=== PATIENT | male | born 1990 | race Hispanic/Latino ===

== ENCOUNTER 2017-10-12 19:06 | Inpatient (IN) | payer OTHER, SELFPAY ==
[2017-10-12] MEDS ORDERED: IPRATROPIUM BROM 0.5MG/2.5ML ONE (19:32)
[2017-10-12] MEDS ORDERED: ALBUTEROL 2.5 MG/3 ML NEB SOL ONE ×2 (19:32→20:38)
[2017-10-12] MEDS ORDERED: MAGNESIUM SULFATE 1 gm IVPB 1 GM/100 ML BAG IV ONE (19:38)
[2017-10-12] MEDS ORDERED: METHYLPREDNISOLONE 125 MG INJ ONE (19:38)
[2017-10-12 20:28] LABS: Absolute Lymphocytes (CBC) 2.1 K/uL (0.7-4.9); Absolute Monocytes 0.9 K/uL (0.1-1.3); Absolute Neutrophil 5.3 K/uL (1.8-8.0); Basophils % 0.2 % (0-1.3); Hematocrit 42.9 % (39.6-49.0); Lymphocytes % 24.8 % (15.3-44.8); MCH 29.8 pg (27.0-35.0); MCV 87.7 fL (80-100); MPV 8.6 fL (7.6-11.3); Monocytes % 10.1 % (3.3-12.3); RBC Red Blood Cell Count 4.89 M/uL (4.33-5.43)
[2017-10-12] MEDS ORDERED: AZITHROMYCIN 500 MG/250 ML BAG ONE (21:03)
[2017-10-12] MEDS ORDERED: CEFTRIAXONE/SWI 1gm 1 GM/10 ML SYR ONE (21:03)
[2017-10-12] MEDS ORDERED: POTASSIUM CL SA 10 MEQ TAB PO ONE (21:38)
--- NOTE | 2017-10-12 21:40 | EDPHYS ---
Physician Documentation [facility] Name: Monster Hill Jr Age: 27 yrs Sex: Male : 1990 Arrival Date: 10/12/2017 Time: 19:10 Bed 28 Private MD: ED Physician Robert Galo HPI: 10/12 19:40 This 27 yrs old Male presents to ER via Wheelchair with complaints of kb Breathing Difficulty. 19:40 The patient has shortness of breath at rest. Onset: The symptoms/episode began/occurred kb 2 day(s) ago. Duration: The symptoms are continuous. The patient's shortness of breath is aggravated by nothing, is alleviated by nothing. Associated signs and symptoms: Pertinent positives: non-productive cough, fever. Severity of symptoms: At their worst the symptoms were moderate in the emergency department the symptoms are unchanged. The patient has not experienced similar symptoms in the past. The patient has not recently seen a physician. Pt reports cough and fever since Sunday, shortness of breath started yesterday. TMAX 102. Historical: - Allergies: 19:29 No Known Allergies; aj - Home Meds: 19:29 None [Active]; aj - PMHx: 19:29 None; aj - PSHx: 19:29 None; aj - Immunization history:: Adult Immunizations up to date. - Social history:: Smoking status: Patient/guardian denies using tobacco. - Ebola Screening: : Patient negative for fever greater than or equal to 101.5 degrees Fahrenheit, and additional compatible Ebola Virus Disease symptoms Patient denies exposure to infectious person Patient denies travel to an Ebola-affected area in the 21 days before illness onset No symptoms or risks identified at this time. ROS: 19:39 ENT: Negative for injury, pain, and discharge, Neck: Negative for injury, pain, and kb swelling, Cardiovascular: Negative for chest pain, palpitations, and edema, Abdomen/GI: Negative for abdominal pain, nausea, vomiting, diarrhea, and constipation, Back: Negative for injury and pain, : Negative for injury, bleeding, discharge, and swelling, MS/Extremity: Negative for injury and deformity, Skin: Negative for injury, rash, and discoloration, Neuro: Negative for headache, weakness, numbness, tingling, and seizure. 19:39 Constitutional: Positive for fever, Negative for body aches, chills, fatigue, malaise, poor PO intake, weight loss. 19:39 Respiratory: Positive for cough, shortness of breath, Negative for dyspnea on exertion, hemoptysis, orthopnea, pleurisy, sputum production, wheezing. Exam: 19:39 Constitutional: This is a well developed, well nourished patient who is awake, alert, kb and in no acute distress. Head/Face: Normocephalic, atraumatic. ENT: Nares patent. No nasal discharge, no septal abnormalities noted. Tympanic membranes are normal and external auditory canals are clear. Oropharynx with no redness, swelling, or masses, exudates, or evidence of obstruction, uvula midline. Mucous membranes moist. Neck: Trachea midline, no thyromegaly or masses palpated, and no cervical lymphadenopathy. Supple, full range of motion without nuchal rigidity, or vertebral point tenderness. No Meningismus. Chest/axilla: Normal chest wall appearance and motion. Nontender with no deformity. No lesions are appreciated. Cardiovascular: Regular rate and rhythm with a normal S1 and S2. No gallops, murmurs, or rubs. Normal PMI, no JVD. No pulse deficits. Abdomen/GI: Soft, non-tender, with normal bowel sounds. No distension or tympany. No guarding or rebound. No evidence of tenderness throughout. Back: No spinal tenderness. No costovertebral tenderness. Full range of motion. Skin: Warm, dry with normal turgor. Normal color with no rashes, no lesions, and no evidence of cellulitis. MS/ Extremity: Pulses equal, no cyanosis. Neurovascular intact. Full, normal range of motion. Neuro: Awake and alert, GCS 15, oriented to person, place, time, and situation. Cranial nerves II-XII grossly intact. Motor strength 5/5 in all extremities. Sensory grossly intact. Cerebellar exam normal. Normal gait. 19:39 Respiratory: mild respiratory distress is noted, Respirations: labored breathing, that is moderate, Breath sounds: decreased breath sounds, that are moderate, are located in both bases, wheezing: expiratory that is moderate, is scattered. Vital Signs: 19:29 BP 130 / 81; Pulse 105; Resp 35; Temp 97.3; Pulse Ox 91% on R/A; Weight 107.95 kg; aj Height 5 ft. 11 in. (180.34 cm); 20:35 Pulse 114; Resp 30; Temp 98.9(O); Pulse Ox 95% on Nebulizer Mask; Pain 0/10; mg2 21:39 BP 157 / 81; Pulse 116; Resp 30; Pulse Ox 96% on Nebulizer Mask; Pain 0/10; mg2 22:33 BP 141 / 71; Pulse 118; Resp 28; Pulse Ox 92% on 4 lpm NC; Pain 0/10; mg2 19:29 Body Mass Index 33.19 (107.95 kg, 180.34 cm) aj MDM: 19:25 Patient medically screened. kb 19:39 Data reviewed: vital signs, nurses notes. Data interpreted: Pulse oximetry: on room air kb is 91 %. Interpretation: borderline. 21:38 Counseling: I had a detailed discussion with the patient and/or guardian regarding: the kb historical points, exam findings, and any diagnostic results supporting the discharge/admit diagnosis, lab results, radiology results, the need for further work-up and treatment in the hospital. 21:38 Physician consultation: Jennifer Hartmann MD was contacted at 21:38, regarding admission, kb to the medical/surgical unit. patient's condition, and will see patient in ED, shortly. 10/12 19:29 Order name: CBC with Diff; Complete Time: 21:25 kb 10/12 19:29 Order name: Basic Metabolic Panel; Complete Time: 21:25 kb 10/12 19:29 Order name: Blood Culture Adult (2) kb 10/12 19:29 Order name: D-Dimer; Complete Time: 21:25 kb 10/12 20:55 Order name: Flu; Complete Time: 21:40 kb 10/12 21:37 Order name: Procalcitonin; Complete Time: 07:32 kb 10/12 19:29 Order name: Chest Pa And Lat (2 Views) XRAY; Complete Time: 21:43 kb 10/12 21:15 Order name: CT Chest For PE Angio; Complete Time: 07:32 kb 10/12 21:37 Order name: Lactate; Complete Time: 07:32 kb 10/12 19:29 Order name: IV Start; Complete Time: 19:38 kb Administered Medications: 19:31 Drug: DuoNeb (3:1) (2.5 mg - 0.5 mg) 3 ml Route: Nebulizer; mg2 20:30 Follow up: Response: No adverse reaction; No change in condition mg2 19:36 Drug: Magnesium Sulfate 1 grams Route: IVPB; Infused Over: 1 hrs; Site: left la1 antecubital; 23:12 Follow up: Response: No adverse reaction; IV Status: Completed infusion mg2 19:36 Drug: SOLU-Medrol 125 mg Route: IVP; Site: left antecubital; la1 23:12 Follow up: Response: No adverse reaction; Marked relief of symptoms mg2 20:34 Drug: Albuterol 2.5 mg Route: Inhalation; mg2 21:05 Drug: Zithromax 500 mg Route: IVPB; Infused Over: 1 hrs; Site: left antecubital; mg2 23:11 Follow up: Response: No adverse reaction; IV Status: Completed infusion mg2 21:06 Drug: Albuterol 2.5 mg Route: Inhalation; mg2 21:06 Drug: Rocephin - (cefTRIAXone) 1 grams Route: IVPB; Infused Over: 30 mins; Site: left mg2 antecubital; 23:11 Follow up: Response: No adverse reaction; IV Status: Completed infusion mg2 21:38 Drug: Albuterol 2.5 mg Route: Inhalation; mg2 23:11 Follow up: Response: No adverse reaction; Marked relief of symptoms mg2 21:38 Drug: Potassium Chloride 40 mEq Route: PO; mg2 23:11 Follow up: Response: No adverse reaction mg2 Disposition: 10/12/17 21:38 Hospitalization ordered by Jennifer Hartmann for Inpatient Admission. Preliminary diagnosis is Pneumonia, unspecified organism. - Bed requested for Telemetry/MedSurg (Inpatient). - Status is Inpatient Admission. mg2 - Condition is Stable. - Problem is new. - Symptoms are unchanged. UTI on Admission? No Addendum: 10/14/2017 08:17 Co-signature as Attending Physician, Robert Galo MD I agree with the assessment and w a plan of care. Signatures: Dispatcher [employer] Malu Oconnor FNP-C FNP-Maribeth Grayson RN Linda Reeves RN RN aj Attema, Lee, RN RN la1 Robert Galo MD MD wa Gardose, Michele, RN RN mg2 Corrections: (The following items were deleted from the chart) 10/12 22:39 21:38 Hospitalization Ordered by Jennifer Hartmann MD for Inpatient Admission. Preliminary kl diagnosis is Pneumonia, unspecified organism. Bed requested for Telemetry/MedSurg (Inpatient). Status is Inpatient Admission. Condition is Stable. Problem is new. Symptoms are unchanged. UTI on Admission? No. kb 23:13 22:39 10/12/2017 21:38 Hospitalization Ordered by Jennifer Hartmann MD for Inpatient mg2 Admission. Preliminary diagnosis is Pneumonia, unspecified organism. Bed requested for Telemetry/MedSurg (Inpatient). Status is Inpatient Admission. Condition is Stable. Problem is new. Symptoms are unchanged. UTI on Admission? No. kl
--- NOTE | 2017-10-12 21:40 | ER ---
Nurse's Notes [facility] Name: Monster Hill Jr Age: 27 yrs Sex: Male : 1990 Arrival Date: 10/12/2017 Time: 19:10 Bed 28 Private MD: Diagnosis: Pneumonia, unspecified organism Presentation: 10/12 19:27 Presenting complaint: Patient states: Difficulty breathing with cough since Sunday. aj Patient is tachypneic in triage but able to speak clearly. Transition of care: patient was not received from another setting of care. Onset of symptoms was October 08, 2017. Risk Assessment: Do you want to hurt yourself or someone else? Patient reports no desire to harm self or others. Initial Sepsis Screen: Does the patient meet any 2 criteria? RR > 20 per min. Does the patient have a suspected source of infection? No. Patient's initial sepsis screen is negative. Care prior to arrival: None. 19:27 Method Of Arrival: Wheelchair 19:27 Acuity: REGGIE 2 aj Triage Assessment: 19:29 General: Appears in no apparent distress. comfortable, Behavior is cooperative. Pain: aj Denies pain. Neuro: Level of Consciousness is awake, alert, obeys commands, Oriented to person, place, time, situation, Appropriate for age. Respiratory: Reports shortness of breath at rest cough that is non-productive, persistent Airway is patent Respiratory effort is even, labored, Respiratory pattern is tachypnea Breath sounds are diminished bilaterally. Onset: The symptoms/episode began/occurred gradually, the patient has moderate shortness of breath. Derm: Skin is intact, is healthy with good turgor, Skin is pink, warm \T\ dry. normal. Historical: - Allergies: 19:29 No Known Allergies; aj - Home Meds: 19:29 None [Active]; aj - PMHx: 19:29 None; aj - PSHx: 19:29 None; aj - Immunization history:: Adult Immunizations up to date. - Social history:: Smoking status: Patient/guardian denies using tobacco. - Ebola Screening: : Patient negative for fever greater than or equal to 101.5 degrees Fahrenheit, and additional compatible Ebola Virus Disease symptoms Patient denies exposure to infectious person Patient denies travel to an Ebola-affected area in the 21 days before illness onset No symptoms or risks identified at this time. Screenin:39 Abuse screen: Denies threats or abuse. Nutritional screening: No deficits noted. mg2 Tuberculosis screening: No symptoms or risk factors identified. Fall Risk IV access (20 points). Assessment: 19:38 General: Appears in no apparent distress. comfortable, Behavior is calm, cooperative. mg2 Pain: Denies pain. Neuro: Level of Consciousness is awake, alert, obeys commands, Oriented to person, place, time, situation. Cardiovascular: Capillary refill < 3 seconds Patient's skin is warm and dry. Respiratory: Airway is patent Respiratory effort is even, unlabored, Respiratory pattern is regular, symmetrical, Breath sounds are coarse bilaterally. in left posterior upper lobe, right posterior upper lobe, left posterior lower lobe, right posterior middle lobe and right posterior lower lobe Breath sounds with crackles. GI: No signs and/or symptoms were reported involving the gastrointestinal system. : No signs and/or symptoms were reported regarding the genitourinary system. EENT: No signs and/or symptoms were reported regarding the EENT system. Derm: Skin is intact, Skin is pink, warm \T\ dry. normal. Musculoskeletal: Circulation, motion, and sensation intact. 20:34 Reassessment: Patient and/or family updated on plan of care and expected duration. Pain mg2 level reassessed. 20:42 Reassessment: patient sent to [facility]. mg2 22:33 Reassessment: Patient appears in no apparent distress at this time. Patient and/or mg2 family updated on plan of care and expected duration. Pain level reassessed. Patient is alert, oriented x 3, equal unlabored respirations, skin warm/dry/pink. patient is still tachypneic. 22:49 Cardiovascular: Rhythm is regular. mg2 Vital Signs: 19:29 BP 130 / 81; Pulse 105; Resp 35; Temp 97.3; Pulse Ox 91% on R/A; Weight 107.95 kg; aj Height 5 ft. 11 in. (180.34 cm); 20:35 Pulse 114; Resp 30; Temp 98.9(O); Pulse Ox 95% on Nebulizer Mask; Pain 0/10; mg2 21:39 BP 157 / 81; Pulse 116; Resp 30; Pulse Ox 96% on Nebulizer Mask; Pain 0/10; mg2 22:33 BP 141 / 71; Pulse 118; Resp 28; Pulse Ox 92% on 4 lpm NC; Pain 0/10; mg2 19:29 Body Mass Index 33.19 (107.95 kg, 180.34 cm) ED Course: 19:10 Patient arrived in ED. es 19:24 Malu David [facility]-C [facility] kb 19:25 Robert Galo MD is Attending Physician. kb 19:28 Triage completed. aj 19:29 Arm band placed on left wrist. Patient placed in an exam room. aj 19:30 Salbador Allan, ALEA is Primary Nurse. mg2 19:37 No provider procedures requiring assistance completed. Inserted saline lock: 20 gauge mg2 in left antecubital area, using aseptic technique. Blood collected. 19:39 Patient has correct armband on for positive identification. Bed in low position. Pulse mg2 ox on. NIBP on. Door closed. Warm blanket given. Head of bed. 21:01 Notified Nurse Practitioner and/or Physician Inspector [employer] of a critical lab result(s), d fc dimer of 872. 21:[address] vr 21:24 Chest Pa And Lat (2 Views) XRAY In Process Unspecified. EDMS 21:29 CT completed. Patient tolerated procedure well. Patient moved back from CT. nj 21:30 CT Chest For PE Angio In Process Unspecified. EDMS 21:38 Jennifer Hartmann MD is Hospitalizing Provider. kb 22:01 Pillow given. jp3 22:26 Notified ED physician of a critical lab result(s). lactate of 2.1. fc 22:49 Inserted saline lock: 20 gauge in right antecubital area, using aseptic technique. mg2 Blood collected. 22:49 Patient admitted, IV remains in place. mg2 Administered Medications: 19:31 Drug: DuoNeb (3:1) (2.5 mg - 0.5 mg) 3 ml Route: Nebulizer; mg2 20:30 Follow up: Response: No adverse reaction; No change in condition mg2 19:36 Drug: Magnesium Sulfate 1 grams Route: IVPB; Infused Over: 1 hrs; Site: left la1 antecubital; 23:12 Follow up: Response: No adverse reaction; IV Status: Completed infusion mg2 19:36 Drug: SOLU-Medrol 125 mg Route: IVP; Site: left antecubital; la1 23:12 Follow up: Response: No adverse reaction; Marked relief of symptoms mg2 20:34 Drug: Albuterol 2.5 mg Route: Inhalation; mg2 21:05 Drug: Zithromax 500 mg Route: IVPB; Infused Over: 1 hrs; Site: left antecubital; mg2 23:11 Follow up: Response: No adverse reaction; IV Status: Completed infusion mg2 21:06 Drug: Albuterol 2.5 mg Route: Inhalation; mg2 21:06 Drug: Rocephin - (cefTRIAXone) 1 grams Route: IVPB; Infused Over: 30 mins; Site: left mg2 antecubital; 23:11 Follow up: Response: No adverse reaction; IV Status: Completed infusion mg2 21:38 Drug: Albuterol 2.5 mg Route: Inhalation; mg2 23:11 Follow up: Response: No adverse reaction; Marked relief of symptoms mg2 21:38 Drug: Potassium Chloride 40 mEq Route: PO; mg2 23:11 Follow up: Response: No adverse reaction mg2 Outcome: 21:38 Decision to Hospitalize by Provider. kb 22:50 Admitted to Med/surg accompanied by nurse, via wheelchair, room 204, with oxygen, with mg2 chart, Report called to ALEA Jaffe 22:50 Condition: stable 22:50 Instructed on the need for admit, Demonstrated understanding of instructions. 23:13 Patient left the ED. mg2 Signatures: Dispatcher [employer] Malu Oconnor, NON DESTRUCTIVE EVALUATION TECHNICIAN-C NON DESTRUCTIVE EVALUATION TECHNICIAN-Linda Hebert, RN Lucy Cuevas Felicia, RN RN fc Davis, Victoria vr Attema, Lee, RN RN la1 Jordan, Nathan Salbador Garnica RN RN mg2 Shayne Murguia jp3
--- NOTE | 2017-10-12 21:42 | RAD REPORT ---
EXAM DESCRIPTION: RAD - Chest Pa And Lat (2 Views) - 10/12/2017 8:48 pm CLINICAL HISTORY: Cough, difficulty breathing COMPARISON: November 2016 TECHNIQUE: PA and lateral views of the chest were obtained. FINDINGS: The lungs are underinflated. Interstitial and alveolar opacification present at the left b ase. No vascular engorgement. Trachea is midline. Heart size is normal and central vasculature is w ithin normal limits. No pleural effusion or pneumothorax seen. No acute bony finding noted. No aor tic abnormality. IMPRESSION: Left lung base pneumonia.
--- NOTE | 2017-10-12 21:42 | RAD REPORT ---
EXAM DESCRIPTION: CT - Chest For Pe Angio - 10/12/2017 9:30 pm CLINICAL HISTORY: Chest pain, difficulty breathing COMPARISON: None. TECHNIQUE: Dynamically enhanced 3 mm thick images of the chest were obtained during administration o f approximately 150mL Isovue 370 IV contrast. Coronal and oblique MIP reconstruction images were gene rated and reviewed. Exam utilizes a protocol to evaluate the pulmonary arterial tree. All CT scans are performed using dose optimization technique as appropriate and may include automated exposure control or mA/KV adjustment according to patient size. FINDINGS: Pulmonary arterial tree opacification is not optimal due to technical issues with the exam ination. There is no central pulmonary embolism. Far peripheral branch assessment is limited. Likelih ood of pulmonary embolic disease is felt to be low. The aorta as imaged shows no acute or suspicious finding. No pericardial thickening or effusion. Airspace opacification is present throughout much of the left lower lobe. A few air bronchograms are present. There is minimal alveolar opacification in the lingula of the left upper lobe. No pleural ef fusion or pleural thickening. Right lung field is clear. No mediastinal or hilar suspicious masses. No chest wall masses or abnormal axillary lymphadenopathy. IMPRESSION: Moderate left lower lobe pneumonia with pneumonia in the lingula of the left upper lobe as well. Exam is suboptimal but no pulmonary emboli suspected.
--- NOTE | 2017-10-12 22:42 | P.HP ---
Certification for Inpatient Patient admitted to: Inpatient With expected LOS: >2 Midnights Practitioner: I am a practitioner with admitting privileges, knowledge of patient current condition, hospital course, and medical plan of care. Services: Services provided to patient in accordance with Admission requirements found in Title 42 Section 412.3 of the Code of Federal Regulations Patient History Date of Service: 10/12/17 Reason for admission: pneumonia History of Present Illness: Mr Hill is a 27 years old male with pretty healthy past medical history, who start about 6 days ago with productive cough and progressive SOB. He has had fever, max 102.8F. Gradually, his SOB was getting worse, and today decided to come to ED for evaluation. Lab work remarkable for normal WBC count, but elevated lactate. Procalcitonin is still pending. D-dimer was also elevated, CTA chest was negative for PE, however, it was remarkable for left lower lobe opacification consistent with pneumonia. The patient was afebrile at arrival, O2 sat 91% on RA. Allergies No Known Allergies Allergy (Unverified 11/16/16 20:29) Home medications list reviewed: Yes - Past Medical/Surgical History Past Medical History: Reviewed- Non-Contributory Past Surgical History: Reviewed- Non-Contributory - Family History Family History: Reviewed- Non-Contributory - Social History Smoking Status: Never smoker Alcohol use: Yes CD- Drugs: No Caffeine use: Yes Place of Residence: Home Review of Systems 10-point ROS is otherwise unremarkable Physical Examination - Physical Exam General: Alert, In no apparent distress HEENT: Atraumatic, PERRLA, Mucous membr. moist/pink, EOMI, Sclerae nonicteric Neck: Supple, 2+ carotid pulse no bruit, No LAD, Without JVD or thyroid abnormality Respiratory: Diminished, Crackles/rales (left base crackles) Cardiovascular: Regular rate/rhythm, Normal S1 S2 Gastrointestinal: Normal bowel sounds, No tenderness Musculoskeletal: No tenderness Integumentary: No rashes Neurological: Normal speech, Normal strength at 5/5 x4 extr, Normal tone, Normal affect Lymphatics: No axilla or inguinal lymphadenopathy - Studies Laboratory Data (last 24 hrs) 10/12/17 20:00: Sodium 137, Potassium 3.0 L, BUN 12, Creatinine 1.20, Glucose 113 H 10/12/17 20:00: WBC 8.5, Hgb 14.6, Hct 42.9, Plt Count 245 Microbiology Data (last 24 hrs): 10/12/17 21:05 Nasopharnyx Influenza Type A Antigen Screen - Final 10/12/17 21:05 Nasopharnyx Influenza Type B Antigen Screen - Final Assessment and Plan - Problems (Diagnosis) (1) Acute respiratory failure Current Visit: Yes Status: Acute Qualifiers: Respiratory failure complication: hypoxia Qualified Code(s): J96.01 - Acute respiratory failure with hypoxia (2) Pneumonia Current Visit: Yes Status: Acute Qualifiers: Pneumonia type: due to unspecified organism Laterality: left Lung location: lower lobe of lung Qualified Code(s): J18.1 - Lobar pneumonia, unspecified organism - Plan The patient will be admitted to the hospital due to acute respiratory failure with hypoxemia due to LLL pneumonia. influenza screening negative. Will order empiric treatment with IV Levaquin, oxygen suport and breathing treatments. Blood culures in process. Consult Dr Atkinson. - Advance Directives Does patient have a Living Will: No Does patient have a Durable POA for Healthcare: No - Code Status/Comfort Care Code Status Assessed: Yes Code Status: Full Code
[2017-10-12] MEDS ORDERED: ALBUTEROL 2.5 MG/3 ML NEB SOL NEB PRN (23:10)
[2017-10-12] MEDS ORDERED: ONDANSETRON 4 MG/2 ML VIAL IV PRN (23:10)
[2017-10-12] MEDS ORDERED: ACETAMINOPHEN 500 MG TAB PO PRN (23:10)
[2017-10-12] MEDS ORDERED: IPRATROPIUM BROM 0.5MG/2.5ML NEB PRN (23:10)
[2017-10-12] MEDS: Levofloxacin 750mg IV 750 MG/150 ML BAG IV SCH (23:30)
[2017-10-12] MEDS: NA CHLORIDE 0.9% 1,000 ML IV SCH (23:30)
[2017-10-13 05:44] LABS: Absolute Lymphocytes (CBC) 0.4 K/uL (0.7-4.9); Absolute Monocytes 0.2 K/uL (0.1-1.3); Absolute Neutrophil 5.3 K/uL (1.8-8.0); Hematocrit 38.8 % (39.6-49.0); Lymphocytes % 6.6 % (15.3-44.8); MCH 29.8 pg (27.0-35.0); MCV 86.7 fL (80-100); MPV 8.9 fL (7.6-11.3); Monocytes % 3.1 % (3.3-12.3); RBC Red Blood Cell Count 4.48 M/uL (4.33-5.43)
[2017-10-13 06:00] LABS: Magnesium 2.6 mg/dL (1.8-2.4); Potassium 3.3 mmol/L (3.5-5.1)
[2017-10-13 06:17] LABS: Blood Morphology Comment NOT SEEN (NOT SEEN); Platelet Estimate ADEQ; Toxic Granulation 2+
[2017-10-13] MEDS ORDERED: POTASSIUM 25 MEQ EFFERV TAB PO ONE (07:15)
[2017-10-13 09:01] LABS: Urine Appearance CLEAR; Urine Bilirubin NEGATIVE (NEG); Urine Blood NEGATIVE (NEG); Urine Color YELLOW; Urine Glucose 1+ (NEG); Urine Protein 1+ (NEG); Urine Specific Gravity >=1.030 (1.005-1.030); Urine pH 6.5 (5.0-7.0)
[2017-10-13 09:07] LABS: Urine Microscopic Reflex ORDER UMIC
[2017-10-13 09:44] LABS: Urine Bacteria <20 /HPF (NONE SEEN); Urine Culture Reflex Order NOT NEEDED; Urine RBC <5 /HPF (NONE SEEN)
[2017-10-13 09:45] LABS: Urine Mucus MOD /HPF (NONE SEEN)
[2017-10-13] MEDS: NA CHLORIDE 0.9% 1,000 ML IV SCH ×2 (11:52→21:09)
--- NOTE | 2017-10-13 12:01 | P.PN ---
Subjective Date of Service: 10/13/17 Primary Care Provider: None Chief Complaint: pneumonia Subjective: Other (Patient doing better still with some shortness of breath) Physical Examination - Vital Signs Temperature: 98.6 F Blood Pressure: 136/75 Pulse: 92 Respirations: 20 Pulse Ox (%): 94 - Physical Exam General: Alert, In no apparent distress, Oriented x3, Cooperative HEENT: Atraumatic Neck: Supple Respiratory: Diminished (To the right side), Crackles/rales (To the right side) Cardiovascular: Normal pulses, Regular rate/rhythm Gastrointestinal: Normal bowel sounds, Soft and benign, Non-distended, No tenderness, No masses, No rebound, No guarding Musculoskeletal: No erythema, No tenderness, No warmth Integumentary: No erythema, No warmth, No cyanosis Neurological: Normal speech, Normal strength at 5/5 x4 extr, Normal tone, Normal affect - Studies Laboratory Data (last 24 hrs) 10/12/17 20:00: Sodium 137, Potassium 3.0 L, BUN 12, Creatinine 1.20, Glucose 113 H 10/12/17 20:00: WBC 8.5, Hgb 14.6, Hct 42.9, Plt Count 245 Microbiology Data (last 24 hrs): 10/12/17 21:05 Nasopharnyx Influenza Type A Antigen Screen - Final 10/12/17 21:05 Nasopharnyx Influenza Type B Antigen Screen - Final Medications List Reviewed: Yes Assessment & Plan Physician Review Additional Text: Impression: Acute respiratory failure with noted hypoxia secondary to moderate left lower lobe pneumonia and with pneumonia in the lingula of the upper lobe likely bacterial. Plan: Will continue with current IV antibiotic therapy. Will provide medication for shortness of breath. Patient still requiring oxygen. Will wean off oxygen at this time. Will recheck chest x-ray in the morning. Pulmonology consulted for further recommendations. Blood, sputum culture obtained. Will continue with IV fluids. Will monitor closely. Time Spent Managing Pts Care (In Minutes): 55
[2017-10-13] MEDS: ENOXAPARIN 40 MG/0.4 ML SQ SCH (16:44)
[2017-10-13] MEDS: GUAIFENESIN 600 MG SA TAB PO SCH (21:09)
[2017-10-13] MEDS: FAMOTIDINE 20 MG TAB PO SCH (21:09)
[2017-10-13] MEDS: Levofloxacin 750mg IV 750 MG/150 ML BAG IV SCH (22:17)
[2017-10-14 04:54] LABS: Absolute Lymphocytes (CBC) 2.1 K/uL (0.7-4.9); Absolute Neutrophil 8.4 K/uL (1.8-8.0); Basophils % 0.2 % (0-1.3); Eosinophils % 0.3 % (0-4.4); Lymphocytes % 18.1 % (15.3-44.8); MCH 29.7 pg (27.0-35.0); MCV 86.9 fL (80-100); MPV 8.4 fL (7.6-11.3); Monocytes % 8.7 % (3.3-12.3); RBC Red Blood Cell Count 4.38 M/uL (4.33-5.43)
[2017-10-14 05:02] LABS: BUN Blood Urea Nitrogen 15 mg/dL (7-18); Bicarbonate 28 mmol/L (21-32); Glucose Level 105 mg/dL (74-106); Magnesium 2.5 mg/dL (1.8-2.4); Potassium 4.5 mmol/L (3.5-5.1); Sodium Level 142 mmol/L (136-145)
[2017-10-14] MEDS: NA CHLORIDE 0.9% 1,000 ML IV SCH (05:11)
--- NOTE | 2017-10-14 08:27 | RAD REPORT ---
EXAM DESCRIPTION: RAD - Chest Pa And Lat (2 Views) - 10/14/2017 7:17 am CLINICAL HISTORY: Pneumonia COMPARISON: October 12 TECHNIQUE: PA and lateral views of the chest were obtained. FINDINGS: The lungs are normal volume. Left lung base pneumonia shows only fractional improvement. N o progressive process. No failure or volume overload. Heart size is normal and central vasculature is within normal limits. No pleural effusion or pneumothorax seen. No acute bony finding noted. No aortic abnormality. IMPRESSION: Left lung base pneumonia shows very little improvement since October 12. No new or pro gressive finding.
--- NOTE | 2017-10-14 08:44 | P.PN ---
Subjective Date of Service: 10/14/17 Primary Care Provider: None Chief Complaint: pneumonia Subjective: Improving Physical Examination - Vital Signs Temperature: 97.5 F Blood Pressure: 134/82 Pulse: 75 Respirations: 18 Pulse Ox (%): 96 - Physical Exam General: Alert, In no apparent distress, Oriented x3, Cooperative HEENT: Atraumatic Neck: Supple Respiratory: Diminished (Slightly diminished to the left side but improved since yesterday.) Cardiovascular: Normal pulses, Regular rate/rhythm Gastrointestinal: Normal bowel sounds, Soft and benign, Non-distended, No tenderness, No masses, No rebound, No guarding Musculoskeletal: No erythema, No tenderness, No warmth Integumentary: No tenderness/swelling, No erythema, No warmth, No cyanosis Neurological: Normal speech, Normal strength at 5/5 x4 extr, Normal tone, Normal affect - Studies Medications List Reviewed: Yes Assessment & Plan Plan to discharge in: 48 Hours Physician Review Additional Text: Impression: Acute respiratory failure with noted hypoxia secondary to moderate left lower lobe pneumonia and with pneumonia in the lingula of the upper lobe likely bacterial. Plan: Patient is slowly improving. Chest x-ray shows improvement. Will continue to wean off oxygen. Continue IV antibiotic therapy. Patient on DVT prophylaxis. Will provide medication for congestion. Encourage incentive spirometer. Encourage ambulation. Will recheck chest x-ray in the morning. Blood, sputum cultures obtained. Will adjust IV fluids. Anticipate discharge once the patient is able to get off oxygen. Time Spent Managing Pts Care (In Minutes): 55
[2017-10-14] MEDS: GUAIFENESIN 600 MG SA TAB PO SCH ×2 (09:17→21:22)
[2017-10-14] MEDS: FAMOTIDINE 20 MG TAB PO SCH ×2 (09:17→21:22)
[2017-10-14] MEDS: NACHLORIDE 0.45% 1,000 ML IV SCH ×2 (10:04→21:22)
[2017-10-14] MEDS: ENOXAPARIN 40 MG/0.4 ML SQ SCH (17:45)
[2017-10-14] MEDS: BENZONATATE 100 MG CAP PO PRN ×2 (17:45→23:30)
[2017-10-14] MEDS: Levofloxacin 750mg IV 750 MG/150 ML BAG IV SCH (22:28)
[2017-10-15] MEDS: NACHLORIDE 0.45% 1,000 ML IV SCH (04:05)
[2017-10-15 06:01] LABS: Absolute Lymphocytes (CBC) 2.5 K/uL (0.7-4.9); Absolute Monocytes 0.9 K/uL (0.1-1.3); Basophils % 0.5 % (0-1.3); Eosinophils % 4.7 % (0-4.4); Hematocrit 39.7 % (39.6-49.0); Lymphocytes % 25.1 % (15.3-44.8); MCH 30.1 pg (27.0-35.0); MCV 86.2 fL (80-100); MPV 8.2 fL (7.6-11.3); Monocytes % 9.2 % (3.3-12.3)
[2017-10-15 06:10] LABS: Magnesium 2.5 mg/dL (1.8-2.4); Potassium 4.1 mmol/L (3.5-5.1)
--- NOTE | 2017-10-15 08:11 | RAD REPORT ---
EXAM DESCRIPTION: RAD - Chest Pa And Lat (2 Views) - 10/15/2017 7:06 am CLINICAL HISTORY: Pneumonia COMPARISON: October 14 TECHNIQUE: PA and lateral views of the chest were obtained. FINDINGS: The lungs are normal volume. Left base pneumonia has show no improvement from the prior d ay study. No new or progressive lung parenchymal finding. Heart size is normal and central vasculatur e is within normal limits. No pleural effusion or pneumothorax seen. IMPRESSION: Moderate improvement in the left lung base pneumonia since prior day imaging.
[2017-10-15 08:59] LABS: Blood Morphology Comment NOT SEEN (NOT SEEN); Platelet Estimate ADEQ
[2017-10-15 09:01] LABS: Toxic Granulation PRESENT
[2017-10-15] MEDS: GUAIFENESIN 600 MG SA TAB PO SCH (09:13)
[2017-10-15] MEDS: FAMOTIDINE 20 MG TAB PO SCH (09:13)
[2017-10-15] MEDS: BENZONATATE 100 MG CAP PO PRN (09:14)
--- NOTE | 2017-10-15 10:19 | P.DS ---
Admission Date: 10/12/17 Discharge Date: 10/15/17 Primary Care Provider: None Disposition: ROUTINE DISCHARGE Discharge Condition: GOOD Reason for Admission: pneumonia Consultations: Pulmonary-Dr. Atkinson Procedures: CT Scan: CLINICAL HISTORY: Chest pain, difficulty breathing COMPARISON: None. TECHNIQUE: Dynamically enhanced 3 mm thick images of the chest were obtained during administration of approximately 150mL Isovue 370 IV contrast. Coronal and oblique MIP reconstruction images were generated and reviewed. Exam utilizes a protocol to evaluate the pulmonary arterial tree. All CT scans are performed using dose optimization technique as appropriate and may include automated exposure control or mA/KV adjustment according to patient size. FINDINGS: Pulmonary arterial tree opacification is not optimal due to technical issues with the examination. There is no central pulmonary embolism. Far peripheral branch assessment is limited. Likelihood of pulmonary embolic disease is felt to be low. The aorta as imaged shows no acute or suspicious finding. No pericardial thickening or effusion. Airspace opacification is present throughout much of the left lower lobe. A few air bronchograms are present. There is minimal alveolar opacification in the lingula of the left upper lobe. No pleural effusion or pleural thickening. Right lung field is clear. No mediastinal or hilar suspicious masses. No chest wall masses or abnormal axillary lymphadenopathy. IMPRESSION: Moderate left lower lobe pneumonia with pneumonia in the lingula of the left upper lobe as well. Exam is suboptimal but no pulmonary emboli suspected. CXR: COMPARISON: October 14 TECHNIQUE: PA and lateral views of the chest were obtained. FINDINGS: The lungs are normal volume. Left base pneumonia has show no improvement from the prior day study. No new or progressive lung parenchymal finding. Heart size is normal and central vasculature is within normal limits. No pleural effusion or pneumothorax seen. IMPRESSION: Moderate improvement in the left lung base pneumonia since prior day imaging. Medical Problem List: Acute respiratory failure with noted hypoxia secondary to moderate left lower lobe pneumonia and pneumonia in the lingula of the upper lobe likely bacterial. Brief History of Present Illness: 27-year-old male presented emergency room with cough, congestion, shortness of breath and fever. Patient was evaluated in the emergency room. CT scan revealed moderate left lower lobe pneumonia with pneumonia in the lingula of the upper lobe. Lactic acid was elevated. Patient was hypoxic. Patient was admitted for treatment. Hospital Course: Patient presented with shortness of breath, fever. Patient found to have moderate left lower lobe pneumonia and pneumonia in the lingula of the upper lobe likely bacterial. Patient responded to IV antibiotic therapy. Patient was weaned off oxygen. At discharge oxygen saturations were within normal range with exertion and at rest. Repeat x-ray shows moderate improvement to the pneumonia. At discharge patient will continue with Levaquin 500 mg daily for 7 days. Medications-Mucinex over the counter twice daily is recommended for congestion. Patient will continue with incentive spirometer. Recommendation is for the patient to establish care with a PCP to follow up this hospitalization. Recommendation is to check a chest x-ray in 2-4 weeks to monitor resolution. Vital Signs/Physical Exam: Temp Pulse Resp BP Pulse Ox 97.1 F 71 18 139/70 97 10/15/17 04:00 10/15/17 04:00 10/15/17 04:00 10/15/17 04:00 10/15/17 04:00 General: Alert, In no apparent distress, Oriented x3, Cooperative HEENT: Atraumatic Neck: Supple Respiratory: Clear to auscultation bilaterally, Normal air movement Cardiovascular: Normal pulses, Regular rate/rhythm Gastrointestinal: Normal bowel sounds, Soft and benign, Non-distended, No tenderness, No masses, No rebound, No guarding Musculoskeletal: No erythema, No tenderness, No warmth Integumentary: No tenderness/swelling, No erythema, No warmth, No cyanosis Neurological: Normal speech, Normal strength at 5/5 x4 extr, Normal tone, Normal affect Lymphatics: No axilla or inguinal lymphadenopathy Laboratory Data at Discharge: WBC 10.0 K/uL (4.3-10.9) 10/15/17 05:32 Hgb 13.8 g/dL (13.6-17.9) 10/15/17 05:32 Hct 39.7 % (39.6-49.0) 10/15/17 05:32 Plt Count 356 K/uL (152-406) D 10/15/17 05:32 Sodium 139 mmol/L (136-145) 10/15/17 05:32 Potassium 4.1 mmol/L (3.5-5.1) 10/15/17 05:32 BUN 13 mg/dL (7-18) 10/15/17 05:32 Creatinine 1.00 mg/dL (0.55-1.3) 10/15/17 05:32 Glucose 93 mg/dL (74-106) 10/15/17 05:32 Magnesium 2.5 mg/dL (1.8-2.4) H 10/15/17 05:32 Home Medications: levoFLOXacin [Levaquin] 500 mg PO DAILY #7 tab 10/15/17 New Medications: levoFLOXacin [Levaquin] 500 mg PO DAILY #7 tab Patient Discharge Instructions: 1. Patient will need to establish care with a local PCP to follow up this hospitalization. 2. Patient presented with shortness of breath, fever. Patient found to have moderate left lower lobe pneumonia and pneumonia in the lingula of the upper lobe likely bacterial. Patient responded to IV antibiotic therapy. Patient was weaned off oxygen. At discharge oxygen saturations were within normal range with exertion and at rest. Repeat x-ray shows moderate improvement to the pneumonia. At discharge patient will continue with Levaquin 500 mg daily for 7 days. Medications- Mucinex over the counter twice daily is recommended for congestion. Patient will continue with incentive spirometer. Recommendation is for the patient to establish care with a PCP to follow up this hospitalization. Recommendation is to check a chest x-ray in 2-4 weeks to monitor resolution. 3. Patient may return to work next Sunday. Diet: Regular Activity: Ad acacia Time spent managing pt's care (in minutes): 55
== END 2017-10-15 11:50 | disposition home or self-care (01) | DRG 193 ==
LOC: ER 19:06 → 2ND 21:39
PROVIDERS: ADMIT Internal Medicine; ATTEND Family Medicine
DX: J15.9 Unspecified bacterial pneumonia (principal); J96.01 Acute respiratory failure with hypoxia
CPT/HCPCS: 36415; 71046; 71275; 80048; 81003; 81015; 83605; 83735; 84132; 84145; 85025; 85379; 87040; 87070; 87081; 87205; 87804; 94640; 94760; 96365; 96366; 96367; 96375; 99285; J0456; J0696; J1650; J2930; J3475; J7030; Q9967